=== PATIENT | female | born 2000 | race Caucasian/White ===

== ENCOUNTER 2021-05-05 21:16 | Emergency (ER) | payer OTHER ==
[2021-05-05 21:30] VITALS: BP 124/85; PULSE 88; TEMP 98; BMI 43.4
== END 2021-05-05 21:57 | disposition home or self-care (01) ==
LOC: JER 21:16 → JERFT 21:16
DX: H60.91 Unspecified otitis externa, right ear (principal)
CPT/HCPCS: 99283-25

== ENCOUNTER 2023-01-28 21:14 | Emergency (ER) | payer OTHER ==
[2023-01-28 21:20] VITALS: PULSE 83; RESP 18; BMI 35.1
[2023-01-28 22:29] LABS: BASO % 0.7 % (0-2.0); EOS % 2.6 % (0-4.5); HEMATOCRIT 39.8 % (32.4-45.2); HEMOGLOBIN 13.5 GM/dL (10.7-15.3); LYMPH % 30.3 % (8-40); MCH 29.6 pg (25.7-33.7); MEAN CELL VOLUME 87.1 fl (80-96); MEAN PLT VOLUME 9.1 fl (7.5-11.1); MONO % 6.7 % (3.8-10.2); NEUT % 59.7 % (42.8-82.8); PLATELET COUNT 328 10^3/uL (134-434); RBC 4.56 M/mm3 (3.60-5.2); RDW 13.3 % (11.6-15.6); WHITE BLOOD COUNT 11.7 K/mm3 (4.0-10.0)
[2023-01-28 22:34] LABS: EPI CELLS 17 /uL (0-25.1); HYALINE CASTS 0 /uL (0-3.1); PH,URINE 5.5 (5.0-8.0); URINE APPEARANCE CLEAR; URINE BACTERIA 60 /uL (0-1359); URINE BILIRUBIN NEGATIVE (NEGATIVE); URINE COLOR YELLOW; URINE GLUCOSE (UA) 3+ (NEGATIVE); URINE KETONE NEGATIVE (NEGATIVE); URINE LEUK ESTERASE NEGATIVE (NEGATIVE); URINE NITRITE NEGATIVE (NEGATIVE); URINE PROTEIN NEGATIVE (NEGATIVE); URINE RBC 2619 /uL (0-23.9); URINE UROBILINOGEN 0.2 mg/dL (0.2-1.0); URINE WBC 5 /uL (0-25.8)
[2023-01-28 22:49] LABS: CHLORIDE 104 mmol/L (98-107); POTASSIUM 4.1 mmol/L (3.5-5.1); SODIUM 136 mmol/L (136-145)
[2023-01-28 22:51] LABS: CALCIUM 9.2 mg/dL (8.5-10.1)
[2023-01-28 22:52] LABS: ALBUMIN 3.6 g/dl (3.4-5.0); ANION GAP 7 MMOL/L (8-16); BLOOD UREA NITROGEN 8.7 mg/dL (7-18); CO2 24 mmol/L (21-32)
[2023-01-28 22:55] LABS: CREATININE 0.7 mg/dL (0.55-1.3); SGOT/AST 26 U/L (15-37); SGPT/ALT 63 U/L (13-61)
[2023-01-28 22:56] LABS: BILIRUBIN,TOTAL 0.4 mg/dL (0.2-1); TOT PROT 7.4 g/dl (6.4-8.2)
[2023-01-28 22:58] LABS: ALK PHOS 86 U/L (45-117)
[2023-01-28 23:05] LABS: GLUCOSE,RANDOM 416 mg/dL (74-106)
[2023-01-28] MEDS ORDERED: INSULIN REGULAR HUMAN 100 UNITS/ML *VIAL SQ ONE (23:13)
[2023-01-29] MEDS ORDERED: SODIUM CHLORIDE 0.9% 500 ML INFUS.BAG IV ONE (01:09)
[2023-01-29 02:07] VITALS: BP 109/68; TEMP 98.3
== END 2023-01-29 02:25 | disposition home or self-care (01) ==
LOC: JER 21:14
PROC: 3E013VG Introduction of Insulin into Subcutaneous Tissue, Percutaneous Approach (ICD-10-PCS; principal; 2023-01-28)
DX: O03.9 Complete or unspecified spontaneous abortion without complication (principal); O99.810 Abnormal glucose complicating pregnancy; R73.9 Hyperglycemia, unspecified; Z3A.01 Less than 8 weeks gestation of pregnancy
CPT/HCPCS: 36415; 76817-TC; 80053; 81003; 82962; 84702; 84703; 85025; 86850; 86900; 86901; 87077; 87086; 99284-25